=== PATIENT | male | born 1995 | race African-American/Black ===

== ENCOUNTER 2018-02-10 11:53 | Emergency (ER) | payer SELFPAY ==
[2018-02-10 12:43] VITALS: BP 136/84
--- NOTE | 2018-02-10 13:25 | ED ---
Lower Extremity - HPI Summary HPI Summary: 22 yr old male with the complaint of the left foot pain. Onset yesterday when he put his left foot down and slid sideways when playing basketball. Pain worse with touching lateral foot and with weight bear. No redness, bruising, swelling. No other complaints. - History of Current Complaint Chief Complaint: UCLowerExtremity Stated Complaint: LEFT FOOT COMP Time Seen by Provider: 02/10/18 13:06 Pain Intensity: 9 - Allergies/Home Medications Allergies/Adverse Reactions: Allergies Allergy/AdvReac Type Severity Reaction Status Date / Time No Known Allergies Allergy Verified 02/10/18 12:37 Home Medications: Home Medications Acetaminophen 650 mg PO ONCE PRN 02/10/18 [History Confirmed 02/10/18] PMH/Surg Hx/FS Hx/Imm Hx - Surgical History Surgery Procedure, Year, and Place: thumb Infectious Disease History: No Infectious Disease History: Reports: Traveled Outside the [place] in Last 30 Days - [place] - Family History Known Family History: Positive: None - Social History Alcohol Use: Occasionally Substance Use Type: Reports: None Smoking Status (MU): Never Smoked Tobacco Review of Systems Constitutional: Negative Positive: Other - left lateral foot pain All Other Systems Reviewed And Are Negative: Yes Physical Exam Triage Information Reviewed: Yes Vital Signs On Initial Exam: Initial Vitals Temp Pulse Resp BP Pulse Ox 98.6 F 62 18 136/84 100 02/10/18 12:39 02/10/18 12:39 02/10/18 12:39 02/10/18 12:39 02/10/18 12:39 Vital Signs Reviewed: Yes Appearance: Positive: Well-Appearing, No Pain Distress Skin: Positive: Warm, Skin Color Reflects Adequate Perfusion Head/Face: Positive: Normal Head/Face Inspection Eyes: Positive: EOMI ENT: Positive: Normal ENT inspection Neck: Positive: Other: - Full range motion Respiratory/Lung Sounds: Positive: Clear to Auscultation, Breath Sounds Present Cardiovascular: Positive: Pulses are Symmetrical in both Upper and Lower Extremities - DP/PT pulse good Abdomen Description: Negative: Distended Musculoskeletal: Positive: Strength/ROM Intact Neurological: Positive: Sensory/Motor Intact, Alert, Oriented to Person Place, Time, CN Intact II-III Psychiatric: Positive: Normal - [place] Coma Scale Best Eye Response: 4 - Spontaneous Best Motor Response: 6 - Obeys Commands Best Verbal Response: 5 - Oriented Coma Scale Total: 15 Procedures - Splinting Location: left lower leg, ankle foot Hand-Made Type: orthoglass Splint: posterior walking Pre-Proc Neuro Vasc Exam: normal Post-Proc Neuro Vasc Exam: normal Diagnostics - Vital Signs Vital Signs Temp Pulse Resp BP Pulse Ox 02/10/18 12:39 98.6 F 62 18 136/84 100 - Laboratory Lab Statement: Any lab studies that have been ordered have been reviewed, and results considered in the medical decision making process. - Radiology foot Xray Interpretation: Positive (See Comments) - STS and avulsion FX anterior talus. Radiology Interpretation Completed By: Radiologist Lower Extremity Course/Dx - Course Course Of Treatment: 22 yr old with posterior splint applied by me. DC home. FU with orthopedics. - Diagnoses Provider Diagnoses: Avulsion fracture of talus Discharge - Sign-Out/Discharge Documenting (check all that apply): Discharge - Discharge Plan Condition: Good Disposition: HOME Prescriptions: Ibuprofen TAB* [Motrin TAB* 600 MG] 600 mg PO Q6H PRN #20 tab PRN Reason: Pain Patient Education Materials: Talar Fracture in Adults (ED) Forms: *Work Release Referrals: No Primary Care Phys,NOPCP [Primary Care Provider] - Ramsey Moyer MD [Medical Doctor] - - Billing Disposition and Condition Condition: GOOD Disposition: HOME
--- NOTE | 2018-02-10 13:41 | RAD ---
INDICATION: Left foot injury COMPARISON: None TECHNIQUE: AP, lateral, and oblique views were obtained. FINDINGS: There is age indeterminate avulsion injury from the dorsal aspect of the anterior talus. No other focal bony findings are seen. There is soft tissue swelling over the midfoot. No additional findings. IMPRESSION: AGE-INDETERMINATE AVULSION INJURY FROM THE ANTERIOR TALUS. SOFT TISSUE SWELLING.
== END 2018-02-10 14:36 | disposition home or self-care (01) ==
LOC: UCCORT 11:53
DX: S92.152A Displaced avulsion fracture (chip fracture) of left talus, initial encounter for closed fracture (principal); X50.0XXA Overexertion from strenuous movement or load, initial encounter; Y93.67 Activity, basketball; Y92.9 Unspecified place or not applicable
CPT/HCPCS: 99203; G0463

== ENCOUNTER 2019-02-24 21:19 | Emergency (ER) | payer BC ==
--- NOTE | 2019-02-25 00:57 | ED ---
GI/ HPI - HPI Summary HPI Summary: 23-year-old male presents with testicular lesion today. States that two days ago had a condom on and it broke and is concerned has an std. He noticed a rash on his penis. is not itchy. denies any penile or testicular pain. also has recurrent cyst to left wrist. No erythema or rash to wrist. states popped on his own and reoccurred. Denies any pain at wrist. No chest pain. No bowel pain. - History of Current Complaint Chief Complaint: EDGeneral Time Seen by Provider: 02/25/19 00:06 Stated Complaint: LUMP ON TESTICLE PER PT Pain Intensity: 0 - Allergy/Home Medications Allergies/Adverse Reactions: Allergies Allergy/AdvReac Type Severity Reaction Status Date / Time No Known Allergies Allergy Verified 02/10/18 12:37 PMH/Surg Hx/FS Hx/Imm Hx Endocrine/Hematology History: Denies: Hx Anticoagulant Therapy Cardiovascular History: Denies: Hx Myocardial Infarction - Surgical History Surgery Procedure, Year, and Place: [facility] Infectious Disease History: No Infectious Disease History: Denies: Traveled Outside the [place] in Last 30 Days - Family History Known Family History: Positive: None - Social History Alcohol Use: Occasionally Substance Use Type: Reports: None Smoking Status (MU): Never Smoked Tobacco Review of Systems Negative: Fever Negative: Chest Pain Negative: Shortness Of Breath Positive: other - testicular mass Positive: Rash All Other Systems Reviewed And Are Negative: Yes Physical Exam Triage Information Reviewed: Yes Vital Signs On Initial Exam: Initial Vitals Temp Pulse Resp BP Pulse Ox 98.5 F 75 18 160/88 97 02/24/19 21:20 02/24/19 21:20 02/24/19 21:20 02/24/19 21:20 02/24/19 21:20 Vital Signs Reviewed: Yes Appearance: Positive: Well-Appearing Skin: Positive: Warm, Dry, Other - small white flakes present on groin with no erythema Head/Face: Positive: Normal Head/Face Inspection Eyes: Positive: Normal, Conjunctiva Clear ENT: Positive: Pharynx normal Respiratory/Lung Sounds: Positive: Clear to Auscultation, Breath Sounds Present Cardiovascular: Positive: Normal, RRR Abdomen Description: Positive: Nontender, Soft Bowel Sounds: Positive: Present Male Genital Exam: Positive: Other - left side epidymidal swelling Musculoskeletal: Positive: Normal, Other - gangilion cyst present on wrist Neurological: Positive: Normal Psychiatric: Positive: Normal Diagnostics - Vital Signs Vital Signs Temp Pulse Resp BP Pulse Ox 02/25/19 00:13 71 143/93 98 02/25/19 00:12 72 99 02/25/19 00:11 75 144/92 98 02/24/19 22:59 98.9 F 58 16 148/85 98 02/24/19 21:20 98.5 F 75 18 160/88 97 - Laboratory Lab Statement: Any lab studies that have been ordered have been reviewed, and results considered in the medical decision making process. - Ultrasound No standard instances Ultrasound Interpretation Completed By: Radiologist Summary of Ultrasound Findings: IMPRESSION: 1. There is a left epididymal cyst measuring a maximum of 1.4 cm. 2. No testicular torsion, orchitis or epididymitis. GIGU Course/Dx - Course Course Of Treatment: 23-year-old male presents with testicular lesion today. States that two days ago had a condom on and it broke and is concerned has an std. He noticed a rash on his penis. is not itchy. denies any penile or testicular pain. also has recurrent cyst to left wrist. No erythema or rash to wrist. states popped on his own and reoccurred. Denies any pain at wrist. No chest pain. No bowel pain. On exam has Left epididymis swelling. Ultrasound shows epididymal cyst. small white scaling on penis appears most like dry skin or contact dermatitis. told may need to change condom type. will test for stds and call if positive. cyst on left wrist appears most like ganglion cyst. told est care with primary to follow up. patient understand and agrees with plan. - Diagnoses Differential Diagnoses - Male: Epididymitis, STD, Testicular Torsion Provider Diagnoses: Cyst, epididymis Discharge - Sign-Out/Discharge Documenting (check all that apply): Patient Departure Patient Received Moderate/Deep Sedation with Procedure: No - Discharge Plan Condition: Good Disposition: HOME Referrals: [facility] [place] [facility] [Outside] Additional Instructions: take ibuprofen as needed for pain Establish care with primary Return to ED if develop any new or worsening symptoms - Billing Disposition and Condition Condition: GOOD Disposition: Home
[2019-02-25 01:16] VITALS: BP 139/87
== END 2019-02-25 01:15 | disposition home or self-care (01) ==
LOC: ED 21:19
DX: N50.3 Cyst of epididymis (principal)
CPT/HCPCS: 76870; 99282